=== PATIENT | female | born 1965 | race Caucasian/White ===

== ENCOUNTER → 2017-03-11 | Outpatient (CLI) | payer BC ==
--- NOTE | 2017-03-13 07:48 | MM ---
Reason for exam: screening (asymptomatic). Last mammogram was performed 9 months ago. History: Patient is postmenopausal. Family history of breast cancer in mother and breast cancer in grandmother at age 45. Physical Findings: A clinical breast exam by your physician is recommended on an annual basis and results should be correlated with mammographic findings. MG Screening Mammo w CAD Bilateral CC and MLO view(s) were taken. Prior study comparison: June 11, 2016, left breast MG diagnostic mammo LT w CAD. December 08, 2015, left breast MG 3d work up w/cad LT. November 28, 2015, bilateral MG screening mammo w CAD. September 26, 2014, bilateral MG screening mammo w CAD. March 15, 2013, bilateral digital screening mammo w/CAD. The breast tissue is heterogeneously dense. This may lower the sensitivity of mammography. There is chronic nodularity in the right breast inferiorly, stable from 2014. No significant changes when compared with prior studies. ASSESSMENT: Negative, BI-RAD 1 RECOMMENDATION: Routine screening mammogram of both breasts in 1 year.
== END ==
LOC: RADMAMWWP 15:13
PROVIDERS: ATTEND Family Medicine
DX: Z12.31 Encounter for screening mammogram for malignant neoplasm of breast (principal); Z80.3 Family history of malignant neoplasm of breast

== ENCOUNTER → 2018-06-04 | Outpatient (CLI) | payer BC ==
--- NOTE | 2018-06-08 10:34 | MM ---
Reason for exam: screening (asymptomatic). Last mammogram was performed 1 year and 3 months ago. History: Patient is postmenopausal. Family history of breast cancer in mother and breast cancer in grandmother at age 45. Physical Findings: A clinical breast exam by your physician is recommended on an annual basis and results should be correlated with mammographic findings. MG Screening Mammo w CAD Bilateral CC and MLO view(s) were taken. Prior study comparison: March 11, 2017, bilateral MG screening mammo w CAD. June 11, 2016, left breast MG diagnostic mammo LT w CAD. The breast tissue is heterogeneously dense. This may lower the sensitivity of mammography. No significant changes when compared with prior studies. ASSESSMENT: Negative, BI-RAD 1 RECOMMENDATION: Routine screening mammogram of both breasts in 1 year.
== END | disposition home or self-care (01) ==
LOC: RADMAMWWP 09:28
PROVIDERS: ATTEND Internal Medicine
DX: Z12.31 Encounter for screening mammogram for malignant neoplasm of breast (principal)
CPT/HCPCS: 77067

== ENCOUNTER → 2019-09-17 | Outpatient (CLI) | payer BC ==
--- NOTE | 2019-09-20 13:47 | MM ---
Reason for exam: screening (asymptomatic). Last mammogram was performed 1 year and 3 months ago. History: Patient is postmenopausal. Family history of breast cancer in mother and breast cancer in grandmother at age 45. Physical Findings: A clinical breast exam by your physician is recommended on an annual basis and results should be correlated with mammographic findings. MG Screening Mammo w CAD Bilateral CC and MLO view(s) were taken. Prior study comparison: June 04, 2018, bilateral MG screening mammo w CAD. March 11, 2017, bilateral MG screening mammo w CAD. The breast tissue is heterogeneously dense. This may lower the sensitivity of mammography. Focal asymmetry with questionable fine calcification. This finding is changed when compared with previous exams. ASSESSMENT: Incomplete: need additional imaging evaluation, BI-RAD 0 RECOMMENDATION: Special view mammogram of the left breast. If lesion persists on supplemental views, image directed ultrasound is recommended. [facility] will attempt to contact patient to return for supplemental views and ultrasound if indicated.
== END | disposition home or self-care (01) ==
LOC: RADMAMWWP 07:32
PROVIDERS: ATTEND Internal Medicine
DX: Z12.31 Encounter for screening mammogram for malignant neoplasm of breast (principal)
CPT/HCPCS: 77067

== ENCOUNTER → 2019-09-24 | Outpatient (CLI) | payer BC ==
--- NOTE | 2019-09-24 11:40 | MM ---
Reason for exam: additional evaluation requested from abnormal screening. Last mammogram was performed less than 1 month ago. History: Patient is postmenopausal. Family history of breast cancer in mother at age 70 and breast cancer in maternal grandmother at age 45. Physical Findings: Nurse did not find any significant physical abnormalities on exam. MG Work Up Mamm w CAD LT CC with magnification, ML with magnification, and ML view(s) were taken of the left breast. Prior study comparison: September 17, 2019, bilateral MG screening mammo w CAD. June 04, 2018, bilateral MG screening mammo w CAD. The breast tissue is heterogeneously dense. This may lower the sensitivity of mammography. No distinct lesion persists on additional views. These results were verbally communicated with the patient and result sheet given to the patient on 09/24/19. ASSESSMENT: Negative, BI-RAD 1 RECOMMENDATION: Return to routine screening mammogram schedule for both breasts.
== END | disposition home or self-care (01) ==
LOC: RADMAMWWP 10:51
PROVIDERS: ATTEND Internal Medicine
DX: R92.8 Other abnormal and inconclusive findings on diagnostic imaging of breast (principal)
CPT/HCPCS: 77065

== ENCOUNTER → 2021-02-01 | Outpatient (CLI) | payer BC ==
--- NOTE | 2021-02-01 11:23 | MM ---
Reason for exam: screening (asymptomatic). Last mammogram was performed 1 year and 4 months ago. History: Patient is postmenopausal. Family history of breast cancer in mother at age 70 and breast cancer in maternal grandmother at age 45. Physical Findings: A clinical breast exam by your physician is recommended on an annual basis and results should be correlated with mammographic findings. MG 3D Screening Mammo W/Cad Bilateral CC and MLO view(s) were taken. Prior study comparison: September 24, 2019, left breast MG work up mamm w CAD LT. September 17, 2019, bilateral MG screening mammo w CAD. The breast tissue is heterogeneously dense. This may lower the sensitivity of mammography. There are benign appearing round calcifications bilaterally. There is no discrete abnormality. ASSESSMENT: Benign, BI-RAD 2 RECOMMENDATION: Routine screening mammogram of both breasts in 1 year.
== END ==
LOC: RADMAMWWP 07:32
PROVIDERS: ATTEND Internal Medicine
DX: Z12.31 Encounter for screening mammogram for malignant neoplasm of breast (principal); Z78.0 Asymptomatic menopausal state; Z80.3 Family history of malignant neoplasm of breast
CPT/HCPCS: 77063; 77067

== ENCOUNTER → 2022-02-19 | Outpatient (CLI) | payer BC ==
--- NOTE | 2022-02-20 08:24 | MM ---
Reason for exam: screening (asymptomatic). Last mammogram was performed 1 year and 1 month ago. History: Patient is postmenopausal. Family history of breast cancer in mother at age 70 and breast cancer in maternal grandmother at age 45. Physical Findings: A clinical breast exam by your physician is recommended on an annual basis and results should be correlated with mammographic findings. MG 3D Screening Mammo W/Cad Bilateral CC and MLO view(s) were taken. Prior study comparison: February 01, 2021, bilateral MG 3d screening mammo w/cad. September 24, 2019, left breast MG work up mamm w CAD LT. The breast tissue is heterogeneously dense. This may lower the sensitivity of mammography. There are benign appearing round calcifications bilaterally. There is no discrete abnormality. ASSESSMENT: Benign, BI-RAD 2 RECOMMENDATION: Routine screening mammogram of both breasts in 1 year.
== END | disposition home or self-care (01) ==
LOC: RADMAMWWP 06:58
PROVIDERS: ATTEND Internal Medicine
DX: Z12.31 Encounter for screening mammogram for malignant neoplasm of breast (principal); Z78.0 Asymptomatic menopausal state; Z80.3 Family history of malignant neoplasm of breast
CPT/HCPCS: 77063; 77067

== ENCOUNTER → 2022-05-07 | Outpatient (CLI) | payer BC | END | disposition home or self-care (01) | LOC: LABWHC1 12:35 | PROVIDERS: ATTEND Obstetrics & Gynecology | DX: N83.209 Unspecified ovarian cyst, unspecified side (principal) | CPT/HCPCS: 36415; 82378; 86304 ==

== ENCOUNTER → 2022-06-17 | Outpatient (CLI) | payer BC ==
--- NOTE | 2022-06-17 09:37 | US ---
EXAMINATION TYPE: US pelvis complete transvag DATE OF EXAM: 06/17/2022 COMPARISON: 04/19/2022 CLINICAL HISTORY: N83.20 OVARIAN CYST. Follow up ovarian cyst, hx endometrial ablation TECHNIQUE: Transvaginal (TV) and Transabdominal (TA) . Transabdominal sonographic images of the pel vis were acquired. Transvaginal sonographic images were medically necessary to better assess the fol lowing anatomy: Ovaries Date of LMP: SHEAR HELPER, EXAM MEASUREMENTS: Uterus: 5.6 x 3.3 x 3.2 cm Right Ovary: 3.2 x 3.9 x 3.0 cm Left Ovary: 1.9 x 1.3 x 1.3 cm 1. Uterus: Anteverted Heterogenous 2. Endometrium: not well seen, hx ablation 3. Right Ovary: cyst- 3.0 x 3.3 x 2.3 cm 4. Left Ovary: follicles seen 5. Bilateral Adnexa: wnl 6. Posterior cul-de-sac: no free fluid IMPRESSION: 1. Right ovarian cyst persists although slightly smaller in size with current measurement given above versus 3.7 x 3.3 x 3.9 cm previously. Continued follow-up versus direct visualization.
== END | disposition home or self-care (01) ==
LOC: RADUSWWP 08:44
PROVIDERS: ATTEND Obstetrics & Gynecology
DX: N83.201 Unspecified ovarian cyst, right side (principal)
CPT/HCPCS: 76830; 76856

== ENCOUNTER → 2022-10-28 | Outpatient (CLI) | payer BC ==
[2022-10-28 17:43] LABS: INR 0.9 (<1.2); Prothrombin Time 9.9 sec (9.0-12.0)
[2022-10-28 22:43] LABS: Appearance,Urine Clear (Clear); Bilirubin,Urine Negative (Negative); Blood,Urine Negative (Negative); Color,Urine Yellow (Yellow); Ketones,Urine Negative (Negative); Nitrite,Urine Positive (Negative); Specific Gravity,Urine 1.016 (1.001-1.030); Urobilinogen,Urine 0.2 (0.2,1.0)
[2022-10-28 22:55] LABS: Bacteria,Urine 3+ /HPF (None Seen)
[2022-10-29 00:24] LABS: African American GFR (CKD) 96.3 (60.0-200.0); Albumin 4.2 g/dL (3.8-4.9); Albumin/Globulin Ratio 1.91 (1.60-3.17); Anion Gap 12.5 mmol/L (10.00-18.00); BUN/Creat Ratio 24.91 Ratio (12.00-20.00); Blood Urea Nitrogen 19.8 mg/dL (9.0-27.0); Calcium 9.6 mg/dL (8.7-10.3); Carbon Dioxide 21.3 mmol/L (20.0-27.5); Globulin 2.2 g/dL (1.6-3.3); Potassium 4.2 mmol/L (3.5-5.5); Total Bilirubin 0.4 mg/dL (0.30-1.20); Total Protein 6.4 g/dL (6.2-8.2)
[2022-10-29 01:47] LABS: HCT 36.8 % (37.2-46.3); MCH 30.2 pg (27.0-32.0); MCHC 32.6 g/dL (32.0-37.0); MCV 92.7 fL (80.0-97.0); Mean Platelet Volume 11.2 fL (9.5-12.2); NRBC Per 100 WBC 0 /100 WBCS (0.0-0.0); Platelet Count 252 X 10*3/uL (140-440); RBC 3.97 X 10*6/uL (4.10-5.20); RDW 13.2 % (11.5-14.5); WBC 12.04 X 10*3/uL (4.50-10.00)
--- NOTE | 2022-10-29 16:37 | CT ---
EXAMINATION TYPE: CT right knee - LUCIAN Protocol CT DLP: 1212.6 mGycm, Automated exposure control for dose reduction was used. DATE OF EXAM: 10/29/2022 4:26 PM COMPARISON: Extremity radiograph same day. CLINICAL INDICATION:Female, 57 years old with history of PRE OP, right knee pain TECHNIQUE: Axial images were obtained of the right knee Lucian protocol . Additional coronal and sagit wisam reformatted images and soft tissue and bone window were obtained for review. Contrast used: None Oral contrast used: None FINDINGS: The pelvis demonstrates right ovarian 2.5 cm cyst along with colonic diverticulosis. There is mild ri ght hip osteoarthrosis changes. Mild right ankle osteoporosis changes with hardware in the calcaneus and talus. The hardware appears intact. The knee demonstrates end-stage osteoarthrosis changes with o steophytes and joint space narrowing and small joint effusion. No evidence of fracture. IMPRESSION: 1. End-stage right knee osteoarthrosis. 2. Right ovary 2.5 cm cyst. 3. Colonic diverticulosis.
== END | disposition home or self-care (01) ==
LOC: RADCTMAIN 15:37
PROVIDERS: ATTEND Orthopaedic Surgery
DX: Z01.812 Encounter for preprocedural laboratory examination (principal); M25.561 Pain in right knee; M25.562 Pain in left knee; E78.5 Hyperlipidemia, unspecified; M21.062 Valgus deformity, not elsewhere classified, left knee; M21.061 Valgus deformity, not elsewhere classified, right knee; M17.0 Bilateral primary osteoarthritis of knee
CPT/HCPCS: 80053; 81001; 85027; 85610; 85730; 87070; 93005

== ENCOUNTER 2022-11-13 10:05 | Day surgery (SDC) | payer BC ==
[2022-11-08 11:53] VITALS: BMI 38.0
[~2022-11-13 10:05] MED LIST: ACETAMINOPHEN TAB 500 MG TAB PO PRN; DEXAMETHASONE SOD PHOSPHATE 10 MG/ML 1 ML VIAL IV PRN; DEXAMETHASONE SOD PHOSPHATE 4 MG/ML 1 ML VIAL IV ONE; DOCUSATE 100 MG CAP PO PRN; FAMOTIDINE 20 MG/2 ML VIAL IVP PRN; KETOROLAC 15 MG/ML 1 ML VIAL IVP PRN; LACTATED RINGERS 1,000 ML IV SCH; LIDOCAINE 1% (10MG/ML) FOR IV START INTRADERMA PRN; MIDAZOLAM 2 MG/2 ML VIAL IV PRN; ONDANSETRON 4 MG/2 ML VIAL IVP ONE; ONDANSETRON 4 MG/2 ML VIAL IVP PRN; ROPIVACAINE/EPI/CLONIDINE/KET 50 ML SYRINGE MISCELLANE PRN; TRANEXAMIC ACID IN NACL,ISO-OS 1,000 MG in SALINE 1 100ML.BAG IVPB PRN; oxyCODONE ER 10 MG TAB.ER.12H PO PRN
[2022-11-13] MEDS ORDERED: LACTATED RINGERS 1,000 ML IV ONE (10:50)
[2022-11-13] MEDS ORDERED: fentaNYL (PF) 50 MCG/1 ML VIAL IVP ONE (11:49)
[2022-11-13] MEDS ORDERED: MIDAZOLAM 2 MG/2 ML VIAL IVP ONE (11:49)
[2022-11-13] MEDS ORDERED: LIDOCAINE 2% INJ 20 MG/ML (2 ML VIAL) ONE (13:02)
[2022-11-13] MEDS ORDERED: GLYCOPYRROLATE 0.2 MG/ML 2 ML VIAL ONE (13:02)
[2022-11-13] MEDS ORDERED: NEOSTIGMINE 1 MG/ML 10 ML VIAL ONE (13:02)
[2022-11-13] MEDS ORDERED: fentaNYL (PF) 50 MCG/ML 2 ML AMP ONE (13:02)
[2022-11-13] MEDS ORDERED: ROPIVACAINE 5 MG/ML 30 ML VIAL ONE (13:02)
[2022-11-13] MEDS ORDERED: ROCURONIUM 10 MG/ML (5 ML VIAL) IV ONE (13:02)
[2022-11-13] MEDS ORDERED: SUCCINYLCHOLINE CHLORIDE 200 MG/10 ML VIAL IV ONE (13:02)
[2022-11-13] MEDS ORDERED: PROPOFOL 10 MG/ML 20 ML VIAL IV ONE (13:02)
[2022-11-13] MEDS ORDERED: MIDAZOLAM 2 MG/2 ML VIAL ONE (13:02)
[2022-11-13] MEDS ORDERED: SODIUM CHLORIDE 0.9% (PF) 10 ML VIAL ONE (13:02)
[2022-11-13] MEDS ORDERED: PHENYLEPHRINE-0.9% NACL SYG 1,000 MCG/10 ML SYRINGE ONE (13:02)
--- NOTE | 2022-11-13 14:08 | P.ANPRN ---
Procedure Note - Anesthesia - Nerve Block Performed Right Adductor Canal Time Out Performed: Yes (11:48) Date of Procedure: 11/13/22 Procedure Start Time: :48 Procedure Stop Time: :53 Location of Patient: PreOp Indication: Acute Post-Operative Pain, Requested by Surgeon (Dr Khan) Sedation Type: Sedate with meaningful contact maintained Preparation: Sterile Prep Position: Supine Catheter: None Needle Types: Pajunk Needle Gauge: 21 Ultrasound used to visualize needle placement: Yes Ultrasound used to observe medication spread: Yes Injectate: 0.5% Ropivacaine (see comment for volume) (15cc) Blood Aspirated: No Pain Paresthesia on Injection Noted: No Resistance on Injection: Normal Image Stored and Saved: Yes Events: Uneventful and Well Tolerated
--- NOTE | 2022-11-13 14:10 | P.ANPRN ---
Procedure Note - Anesthesia - Nerve Block Performed Right iPack Time Out Performed: Yes Date of Procedure: 11/13/22 Procedure Start Time: 11:55 Procedure Stop Time: 12:01 Location of Patient: PreOp Indication: Acute Post-Operative Pain, Requested by Surgeon (Dr Khan) Sedation Type: Sedate with meaningful contact maintained Preparation: Sterile Prep Position: Supine Catheter: None Needle Types: Pajunk Needle Gauge: 21 Ultrasound used to visualize needle placement: Yes Ultrasound used to observe medication spread: Yes Injectate: 0.5% Ropivacaine (see comment for volume) (15cc +5cc PF Normal saline) Blood Aspirated: No Pain Paresthesia on Injection Noted: No Resistance on Injection: Normal Image Stored and Saved: Yes Events: Uneventful and Well Tolerated
[2022-11-13] MEDS ORDERED: NALOXONE 0.4 MG/ML 1 ML VIAL IV PRN (15:47)
[2022-11-13] MEDS ORDERED: hydrOXYzine pamoate 25 MG CAP PO PRN (15:47)
[2022-11-13] MEDS ORDERED: HYDROcodone/APAP 5-325MG 1 EACH TAB PO PRN ×2 (15:47)
[2022-11-13] MEDS ORDERED: ONDANSETRON 4 MG/2 ML VIAL IVP PRN (15:47)
[2022-11-13] MEDS ORDERED: HYDROmorphone 0.5 MG/0.5 ML SYRINGE IVP PRN ×2 (15:47)
[2022-11-13] MEDS ORDERED: HYDROmorphone 1 MG/ML 1 ML SYRINGE IVP PRN (15:47)
--- NOTE | 2022-11-13 16:09 | P.OP ---
Date of Procedure: 11/13/22 Preoperative Diagnosis: Severe right knee osteoarthritis, valgus Postoperative Diagnosis: same Procedure(s) Performed: Right Total Knee Arthroplasty Implants: 1. Hal Triathlon CR Femur Size #3 2. [place] Triathlon [place] Tibial Base Size #2 3. [place] Triathlon CS poly Size #2, 11-mm 4. [place] Triathlon all poly patella, Size #29 Anesthesia: NNEKAA, regional Surgeon: Kennedy Khan Film Critic #1: Arianna Teran Estimated Blood Loss (ml): 50 IV fluids (ml): 1,200 Pathology: none sent Condition: stable Disposition: PACU Indications for Procedure: I met with the patient preoperatively in the office setting and discussed treatment of their symptomatic knee arthritis. They failed a long course of nonsurgical treatment and elected to proceed with an elective total knee replacement. I discussed the potential risks and complications at length and gave them ample time to ask questions. Risks discussed included: risks from anesthesia, superficial site surgical infection, acute and/or chronic periprosthetic joint infection, delayed wound healing, drainage, wound necrosis, instability, stiffness, stiffness requiring manipulation and/or revision surgery, damage to local blood vessels or nerves, aseptic loosening of the implants, extensor mechanism issues including disruption, patellar maltracking, avascular necrosis etc., continued or worsened knee pain, generalized dissatisfaction with surgical outcome, need for revision surgery, an inability to regain preinjury level of function, DVT, PE, other medical complications, and possibly loss of life or limb. The patient voiced their understanding that while these are the most common complications other less common complications are possible. They provided both their verbal and written consent to go forward with surgery. Description of Procedure: The patient was identified in preoperative holding and the correct operative extremity was verified and marked with a marker. I reviewed the consent form with the patient at length. All of their questions were answered. The patient was given a block by anesthesia. They were then brought back to the operating room. They were transferred onto the operating room table where a general anesthetic, preoperative antibiotics, and tranexamic acid were administered by anesthesia. A tourniquet was applied to the proximal aspect of the operative extremity. The contralateral extremity was padded under the heel and secured to the operating room table with a nonsterile blue towel and tape. The ipsilateral arm was carefully draped across the patient's chest and secured with a pillow and foam. A post was applied over the lateral aspect of the ipsilateral thigh and a bolster was placed under the ipsilateral foot. I verified that the operative extremity was stable and the knee was flexed to 90. The operative extremity was then placed in a leg warner, nonsterile drapes were applied, and the extremity was prepped and draped sterilely in the standard sterile fashion. Prior to starting surgery timeout was performed identifying the correct patient, operative extremity, and procedure. The leg was then elevated, exsanguinated with an Esmarch bandage, and the tourniquet was inflated. An anterior midline incision was made sharply with a scalpel. Once I had dissected deep to the superficial fascial layer medial and lateral flaps were elevated. A medial parapatellar arthrotomy was created. Upon opening the knee joint there were diffuse arthritic changes in all 3 compartments. The anterior horn of the medial meniscus were sharply released and a medial release was performed around the posterior medial corner of the knee to facilitate retractor placement. The fat pad was excised with electrocautery. The patella was found to be severely arthritic and a provisional cut was made with a sagittal saw to facilitate mobilization of the extensor mechanism during the procedure. Remnants of the ACL and PCL were then excised from the notch. 4 mm pins were then placed within the incision in the medial distal femur and proximal tibia. Arrays were applied to the pins and I verified they were completely tightened. The knee was then registered with the Bokee robot and manipulations in implant position were made to balance the knee and opitmize implant position. Using the Lucian robotic saw all cuts were made in accordance with our plan. After all bony fragments had been removed the cuts were verified with the planar probe. The tibia was then subluxed forward and sized. The knee was brought into flexion and a lamina interventionist was placed to allow removal of the meniscal remnants both medially and laterally as well as posterior osteophytes. Local anesthetic was then infiltrated around the joint capsule. Trial implants were then placed within the knee. Range of motion and collateral ligament tension was then evaluated. Adjustments in implant size and position were then made accordingly. Once the knee was felt to be appropriately balanced the Lucian pins were removed. The patella was then recut, sized, and punched. A trial patellar button was then placed. With the trial components in place, the patella tracked midline. The femur was then drilled and the trial component removed. The trial tibial component was then appropriately rotated, pinned, and prepared for the keel. All trial components were then removed from the knee. The knee was thoroughly irrigated with pulsatile lavage. Cement was prepared via vacuum mixing in a bowl on the back table. I then hand pressurized cement into the femur and tibia and placed the implants beginning with the tibial base tray and poly liner, femoral component, and finally the patellar button. All extruded cement was removed including from the pin sites. Once the cement had hardened the knee was evaluated one final time with the final polyethylene liner in place. The knee had full extension and flexion and felt stable to varus and valgus stress throughout the arc of motion. The tourniquet was released and with the tourniquet down the patella tracked midline. All bleeders were controlled with electrocautery. The knee was then soaked for 3 minutes with a dilute Betadine soak. The knee was thoroughly irrigated using 3 L of sterile saline and pulsatile lavage. A deep drain was placed. The extensor mechanism was then reapproximated using pop off Vicryl sutures followed by a running barbed suture. The knee was then closed in layers with a 0 strata fix for the deep fascial layer, 2-0 strata fix for the superficial subcutaneous layer and Monocryl and Steri-Strips for the skin. A sterile dressing and drain sponge were applied. I verified that all instrument, sponge, and sharp counts were correct. The patient was then transferred off the operating room table, extubated, and brought to recovery having tolerated the procedure well. Arianna Teran PA-C was required as a skilled radiology assistant due to the complexity of the procedure for patient positioning, draping, retraction, placement of hardware, and closure of wound. PLAN: The patient can weight-bear as tolerated on the operative extremity. DVT prophylaxis with aspirin 81 mg twice a day based on preoperative risk stratification. Follow-up in the office in 2 weeks for wound check and x-rays of the knee including an AP and lateral.
[2022-11-13] MEDS: HYDROmorphone 0.5 MG/0.5 ML SYRINGE IVP PRN ×2 (16:13→16:26)
--- NOTE | 2022-11-13 16:19 | XR ---
EXAMINATION TYPE: XR knee limited RT DATE OF EXAM: 11/13/2022 CLINICAL HISTORY: Right knee pain and arthritis status post total knee replacement. TECHNIQUE: Portable AP and crosstable lateral views of the right knee are obtained immediately posto peratively. COMPARISON: CT right knee October 28, 2022 FINDINGS: Metallic hardware from total right knee arthroplasty is seen and appears satisfactory in a lignment and position. There is evidence of recent surgery with diffuse subcutaneous gas , soft tiss ue swelling, and percutaneous suprapatellar surgical drain noted. IMPRESSION: METALLIC HARDWARE FROM TOTAL RIGHT KNEE ARTHROPLASTY IS SATISFACTORY IN ALIGNMENT.
[2022-11-13] MEDS: LACTATED RINGERS 1,000 ML IV SCH ×3 (16:25→18:08)
--- NOTE | 2022-11-13 18:33 | P.OP ---
Date of Procedure: 11/13/22 Preoperative Diagnosis: 1. Displaced left trimalleolar equivalent ankle fracture dislocation Postoperative Diagnosis: Same Procedure(s) Performed: 1. Open reduction and internal fixation of left lateral malleolus fracture 2. Left ankle deltoid ligament repair 3. Left ankle open reduction internal fixation syndesmosis Anesthesia: СЕРГЕЙ, regional Surgeon: Kennedy Khan Savings Counselor #1: Arianna Teran Estimated Blood Loss (ml): 25 IV fluids (ml): 1,200 Pathology: none sent Condition: stable Disposition: PACU Indications for Procedure: The patient is a very pleasant previously healthy 57-year-old female who sustained a left ankle fracture dislocation several weeks ago. She was seen in our emergency department where a closed reduction and splint application was performed. She had a postreduction computed tomography scan. She followed up with me in the office. I recommended open reduction and internal fixation. We discussed potential risks and complications of this at length. Risks discussed include but are certainly not limited to risks from anesthesia, superficial infection, deep infection, delayed wound healing, nonunion, malunion, malreduction of the ankle mortise, hardware failure, postoperative displacement, damage to blood vessels or nerves, DVT, PE, posttraumatic ankle arthritis, chronic pain, and inability to regain preinjury level of function, need for further surgery, symptomatic hardware, and possibly loss of life or limb. The patient voiced understanding of these potential complications wall also a bulging other less common complications. She provided both her verbal and written consent to go forward with surgery. Description of Procedure: The patient was identified in preoperative holding area and her left splint was taken down. We confirmed the correct left ankle. There was wrinkling of the skin. We reviewed the consent form and all the patient's questions were answered. A block was placed by anesthesia. The patient was then brought to the operating room. She was positioned on the OR table were general anesthetic and preoperative antibiotics were given. A tourniquet was applied the proximal aspect of the left ankle. A bone foam ramp was placed on the left leg to facilitate imaging. A bump was placed on the left buttock to facilitate imaging. The right leg was secured to the table with foam and tape. Nonsterile drapes were applied. A pre-scrub was performed with a chlorhexidine scrub brush. The left leg was then prepped and draped in the standard sterile fashion. A starting surgery timeout was performed identifying the correct patient, operative extremity, and procedure. The patient's leg was then elevated, exsanguinated with Esmarch bandage, and the tourniquet was inflated to 250 mmHg. I began by making a straight lateral incision of the distal fibula. Skin incision was made a scalpel and dissection was carried down carefully to the subcutaneous tissue with tenotomy scissors. The superficial peroneal nerve was identified within the incision was carefully retracted throughout the procedure. Dissection was then carried down exposing the distal fibula sharply with a scalpel. The periosteum was elevated distally in the peroneal muscle fascia was incised proximally. The fracture site was identified and early callus and hematoma was gently debrided. The reduction was performed and held with a [id number] reduction clamp. A 2.7 mm lag screw was placed generate excellent compression across the fracture. A precontoured distal fibular locking plate was then placed over the distal fibula and its position was confirmed with fluoroscopy. Nonlocking screws were placed proximally. Distally a nonlocking screw was placed to bring the plate down to bone and then locking screws were placed. A manual external rotation stress x-ray was performed and showed continued opening of the medial clear space. I elected to perform a deltoid ligament repair. A longitudinal incision was made over the medial malleolus. Dissection was carried down carefully to the subcutaneous tissue. The saphenous vein was identified and retracted anteriorly. On inspection the deltoid ligament had completely avulsed off of the medial distal tibia. There was soft tissue within the medial gutter of the ankle that was carefully removed. On inspection of the medial dome of the talus there is a full-thickness osteochondral flap which was carefully debrided. There is exposed subchondral bone. Using a 0.054 wire this was perforated to facilitate bleeding as a microfracture. A fiber tack suture anchor was then placed into the medial malleolus and the deltoid ligament was carefully repaired. At this point a manual external patient's stress x-ray showed continued opening of the medial clear space and incisura. I interpreted this as requiring syndesmotic fixation. At this point attention was turned to the syndesmosis. Using the tight rope A K wire was placed through the plate across the fibula and into the tibia. Its position was verified using biplanar fluoroscopy. A cannulated drill bit was then used to create a path for the tight rope. The tight rope was then dispensed and placed from lateral to medial. The Endobutton was disengaged and gently tightened nicely reduced and the syndesmosis. A manual external rotation stress x-ray was performed and showed no widening of the medial clear space or incisura. Final fluoroscopic images were taken. Both wounds were then thoroughly irrigated and closed in layers. A sterile dressing was applied followed by a well-padded bulky Hanks splint with the ankle in neutral. The patient was then awoken from her anesthetic, transferred from the OR table to the [facility], and brought to recovery having tolerated the procedure well. Arianna Teran PA-C was required as a skilled assistant restaurant general manager for patient positioning, surgical exposure, Placement of hardware, closure of wound, and application of splint. Plan: The patient is going to discharge home as an outpatient which should remain strictly nonweightbearing on her left leg. She will leave her splint in place. She was given a prescription for pain medication, stool softener, and aspirin for DVT prophylaxis based on her preoperative risk stratification for DVT. She'll follow-up in the office in 2 weeks at which point she will need splint removal and nonweightbearing x-rays of the left ankle.
[2022-11-13] MEDS ORDERED: SENNOSIDES-DOCUSATE SODIUM 1 EACH TAB PO SCH (21:00)
[2022-11-13] MEDS: ASPIRIN 81 MG PO SCH (22:06)
[2022-11-14 02:14] VITALS: RESP 18
[2022-11-14 07:42] VITALS: BP 116/68; PULSE 73; TEMP 98.3
[2022-11-14] MEDS: ASPIRIN 81 MG PO SCH (08:12)
[2022-11-14] MEDS: LACTATED RINGERS 1,000 ML IV SCH (08:13)
[2022-11-14] MEDS ORDERED: ATORVASTATIN 20 MG TAB PO SCH (09:00)
[2022-11-14] MEDS ORDERED: OXYBUTYNIN CHLORIDE 5 MG TAB PO SCH (09:00)
[2022-11-14] MEDS ORDERED: SPIRONOLACTONE 25 MG TAB PO SCH (09:00)
--- NOTE | 2022-11-14 09:03 | P.DS ---
Providers Expected date of discharge: 11/14/22 Attending physician: Kennedy Khan Consults: 11/13/22 15:49 Consult Physician Routine Consulting Provider: Myrna Estrada Consult Reason/Comments: medical management Do you want consulting provider notified?: Yes Primary care physician: Jennfier Alberto [facility] Course: This is a 57-year-old female who has been followed in our office by Dr. Khan for continued complaints of right knee pain due to right knee osteoarthritis. Treatment options were discussed, and patient elected to undergo a right total knee arthroplasty. Patient was seen pre-operatively by Dr. Alberto and cleared for surgery. Patient underwent a right total knee arthroplasty on 11/14/[address] Khan. The procedure was performed without complication or sequelae. The patient is doing fairly well postoperatively. Vital signs and labs are stable on postoperative day #1. Patient was examined bedside this morning with Dr. Khan. Patient states she is overall doing very well and the pain in her right knee is well-controlled. She has been ambulating with a walker with minimal assistance. Patient is comfortable being discharged home today. Patient denies new complaints today. On examination, the patient is sitting up in bed in no apparent distress. She is alert and orientated 3. On inspection of the right knee, there is a clean, dry, intact surgical dressing in place. There is no bleeding or drainage the dressing. Patient has good strength and ROM of the right ankle and toes. Motor and sensory function is intact of the right lower extremity. The dorsalis pedis pulse is easily palpable, the right lower extremity is warm and well perfused with brisk capillary refill. Calf is soft and non-tender to palpation. Hemovac drain removed bedside this morning. Patient is discharged home with home health care today in good condition, pending medical clearance. Patient will follow-up with Dr. Khan in the office in 2 weeks. Please see med rec for accurate list of discharge medication. Plan - Discharge Summary Discharge Rx Participant: Yes New Discharge Prescriptions: New Aspirin 81 mg PO BID 30 Days #60 tab Docusate [Colace] 100 mg PO BID #60 capsule HYDROcodone/APAP 5-325MG [[place] 5-325] 1 - 2 tab PO Q6HR PRN 7 Days #32 tab PRN Reason: Pain Omeprazole 40 mg PO DAILY 30 Days #30 cap Diclofenac Sodium [Voltaren] 75 mg PO BID 30 Days #60 tab No Action Spironolactone [Aldactone] 50 mg PO DAILY Ibuprofen [Motrin] 800 mg PO BID Candesartan [Atacand] 16 mg PO DAILY Rosuvastatin [Crestor] 10 mg PO DAILY Ciprofloxacin HCl [Cipro] 500 mg PO Q12HR Oxybutynin Chloride 5 mg PO DAILY EPINEPHrine (Auto Inject) [Epipen] 0.3 mg IM ONCE PRN MDD ALLERGY SYMPTOMS PRN Reason: Anaphylaxis Discharge Medication List Candesartan [Atacand] 16 mg PO DAILY 11/08/22 [History] Ciprofloxacin HCl [Cipro] 500 mg PO Q12HR 11/08/22 [History] EPINEPHrine (Auto Inject) [Epipen] 0.3 mg IM ONCE PRN MDD ALLERGY SYMPTOMS 11/08/22 [History] Ibuprofen [Motrin] 800 mg PO BID 11/08/22 [History] Oxybutynin Chloride 5 mg PO DAILY 11/08/22 [History] Rosuvastatin [Crestor] 10 mg PO DAILY 11/08/22 [History] Spironolactone [Aldactone] 50 mg PO DAILY 11/08/22 [History] Aspirin 81 mg PO BID 30 Days #60 tab 11/13/22 [Rx] Diclofenac Sodium [Voltaren] 75 mg PO BID 30 Days #60 tab 11/13/22 [Rx] Docusate [Colace] 100 mg PO BID #60 capsule 11/13/22 [Rx] HYDROcodone/APAP 5-325MG [[place] 5-325] 1 - 2 tab PO Q6HR PRN 7 Days #32 tab 11/13/22 [Rx] Omeprazole 40 mg PO DAILY 30 Days #30 cap 11/13/22 [Rx] Follow up Appointment(s)/Referral(s): Jennifer Alberto MD [Primary Care Provider] - 1 Week Kennedy Khan MD [Medical Doctor] - 11/22/22 1:05 pm Patient Instructions/Handouts: Knee Replacement (DC)
[2022-11-14 10:15] LABS: Basophils # (A) 0.03 X 10*3/uL (0.00-0.10); Basophils % (A) 0.2 %; Eosinophils # (A) 0 X 10*3/uL (0.04-0.35); Eosinophils % (A) 0 %; HCT 34.9 % (37.2-46.3); HGB 11.7 g/dL (12.0-15.0); Immature Grans, Automated 0.7 %; Lymphocytes # (A) 0.92 X 10*3/uL (0.90-5.00); Lymphocytes % (A) 4.9 %; MCH 31.1 pg (27.0-32.0); MCHC 33.5 g/dL (32.0-37.0); MCV 92.8 fL (80.0-97.0); Mean Platelet Volume 10.1 fL (9.5-12.2); Monocytes # (A) 0.69 X 10*3/uL (0.20-1.00); Monocytes % (A) 3.7 %; NRBC Per 100 WBC 0 /100 WBCS (0.0-0.0); Neutrophils # (A) 17.11 X 10*3/uL (1.80-7.70); Neutrophils % (A) 90.5 %; Platelet Count 255 X 10*3/uL (140-440); RBC 3.76 X 10*6/uL (4.10-5.20); RDW 12.9 % (11.5-14.5); WBC 18.88 X 10*3/uL (4.50-10.00)
[2022-11-14 10:16] LABS: RBC Morphology NORMAL
--- NOTE | 2022-11-14 14:16 | P.CONS ---
History of Present Illness - Reason for Consult Consult date: 11/14/22 Medical management, postop right knee arthroplasty - History of Present Illness This is a 57-year-old female who was recently admitted under orthopedic services scheduled to undergo right total knee arthroplasty for osteoarthritis. Patient reports he follows with Dr. Alberto in the outpatient setting with a past medical history of hyperlipidemia, hypertension, osteoarthritis and was a former smoker and occasionally drinks on social occasions and denies any other illicit drug use. Patient is status post arthroplasty unable to work with physical therapy and did relatively well reports she is planning on being discharged home today. Patient does take blood pressure medications in the form of Aldactone and candesartan. Patient's blood pressure currently normalized at 116/68 and recommend monitoring blood pressure as she reports she does have a cuff at home and is blood pressure increases may resume medications tomorrow. Patient does have a follow-up appointment in the outpatient setting. Patient with incentive spirometer at the bedside encourage the patient to take home and continue using at least 10 times every hour while awake. We will continue to follow with orthopedics during hospitalization. Recommend holding blood pressure medication for now. Review Of Systems: Constitutional: No fever, no chills, no night sweats. No weight change. No weakness, fatigue or lethargy. No daytime sleepiness. EENT: No headache. No blurred vision or double vision, no loss of vision. No loss of Hearing, no ringing in the ears, no dizziness. No nasal drainage or congestion. No epistaxis. No sore throat. Lungs: No shortness of breath, cough, no sputum production. No wheezing. Cardiovascular: No chest pain, no lower extremity edema. No palpitations. No paroxysmal nocturnal dyspnea. No orthopnea. No lightheadedness or dizziness. No syncopal episodes. Abdominal: No abdominal pain. No nausea, vomiting. No diarrhea. No constipation. No bloody or tarry stools.. No loss of appetite. Genitourinary: No dysuria, increased frequency, urgency. No urinary retention. Musculoskeletal: No myalgias. No muscle weakness, no gait dysfunction, no frequent falls. No back pain. No neck pain. Reports some right knee discomfort Integumentary: No wounds, no lesions. No rash or pruritus. No unusual bruising. No change in hair or nails. Neurologic: No aphasia. No facial droop. No change in mentation. No head injury. No headache. No paralysis. No paresthesia. Psychiatric: No depression. No anxiety. No mood swings. Endocrine: No abnormal blood sugars. No weight change. No excessive sweating or thirst. No cold intolerance. PHYSICAL EXAMINATION: GENERAL: The patient is alert and oriented x4, Well developed, well nourished. Obese. HEENT: Pupils are round and equally reacting to light. EOMI. no scleral icterus. No conjunctival pallor. Normocephalic, atraumatic. No pharyngeal erythema. No thyromegaly. CARDIOVASCULAR: S1 and S2 muffled PULMONARY: diminished breath sounds bilaterally with no wheezing or rhonchi noted. ABDOMEN: soft. Nontender on exam. obese. non-distended, normoactive bowel sounds. No palpable organomegaly. MUSCULOSKELETAL: No joint swelling or deformity. EXTREMITIES: No cyanosis, clubbing, or pedal edema. Right knee dressing is dry and intact with no surrounding redness or swelling noted NEUROLOGICAL: Gross neurological examination did not reveal any focal deficits. SKIN: No rashes. Assessment: Status post right total knee arthroplasty History of osteoarthritis Hypertension Hyperlipidemia Obesity with a BMI of 37.7 Former smoker GI prophylaxis DVT prophylaxis Full code Plan: Recommend to continue with current medications and management per orthopedic services. Patient has been seen and evaluated by PT/OT therapy and did well and is planning for discharge home today. Patient reports her pain is managed on current regimen and will continue. Patient with incentive spirometer at the bedside recommend to continue using at least 10 times every hour while awake even while at home. Patient does take blood pressure medications and blood pressure normotensive today recommend to hold medications and recheck blood pressure in the morning and if elevated may resume blood pressure medications. Encouraged fluids and monitoring of constipation due to pain medications. Continue with activity as tolerated with restrictions per orthopedics. Recommend outpatient follow-up with primary care provider along with orthopedics at your scheduled follow-up appointment. We will continue to follow along with orthopedics during hospitalization. Thank you kindly for this consultation. The impression and plan of care has been dictated by Adelina Jacobsen, nurse practitioner as directed. Dr. Fran PAINTING I have performed a history and examination and MDM of this patient, discussed the same with the dictator, and agree with the dictator's assessment and plan as written ,documented as a scribe. Based on total visit time, I have performed more than 50% of the visit. Any additional findings or plans will be noted. Past Medical History Past Medical History: Hyperlipidemia, Hypertension, Osteoarthritis (OA) History of Any Multi-Drug Resistant Organisms: None Reported Past Surgical History: Section, Uterine Ablation Additional Past Surgical History / Comment(s): C SECTION X2 , D&C, BILATERAL FOOT SURGERY, RIGHT WRIST, Rt TKR Past Anesthesia/Blood Transfusion Reactions: Family History of Problems w/ Anesthesia Additional Past Anesthesia/Blood Transfusion Reaction / Comm: MOM WAS COMBATIVE WITH ANESTHESIA Past Psychological History: No Psychological Hx Reported Smoking Status: Former smoker Past Alcohol Use History: Occasional Additional Past Alcohol Use History / Comment(s): STARTED SMOKING AT AGE 16 QUIT AUG 2022 SMOKED 4 CIG A DAY Past Drug Use History: None Reported - Past Family History Mother Family Medical History: Cancer Additional Family Medical History / Comment(s): BREAST CANCER Medications and Allergies Home Medications Medication Instructions Recorded Confirmed Type Candesartan [Atacand] 16 mg PO DAILY 11/08/22 11/08/22 History EPINEPHrine (Auto Inject) [Epipen] 0.3 mg IM ONCE PRN MDD ALLERGY 11/08/22 11/08/22 History SYMPTOMS Ibuprofen [Motrin] 800 mg PO BID 11/08/22 11/08/22 History Oxybutynin Chloride 5 mg PO DAILY 11/08/22 11/08/22 History Rosuvastatin [Crestor] 10 mg PO DAILY 11/08/22 11/08/22 History Spironolactone [Aldactone] 50 mg PO DAILY 11/08/22 11/08/22 History Aspirin 81 mg PO BID 30 Days #60 tab 11/13/22 Rx Diclofenac Sodium [Voltaren] 75 mg PO BID 30 Days #60 tab 11/13/22 Rx Docusate [Colace] 100 mg PO BID #60 capsule 11/13/22 Rx HYDROcodone/APAP 5-325MG [[place] 1 - 2 tab PO Q6HR PRN 7 Days #32 11/13/22 Rx 5-325] tab Omeprazole 40 mg PO DAILY 30 Days #30 cap 11/13/22 Rx Allergies Allergy/AdvReac Type Severity Reaction Status Date / Time latex Allergy Rash/Hives Verified 11/08/22 09:32 shellfish derived [Shellfish] Allergy Rash/Hives Verified 11/08/22 09:32 Physical Exam Vitals: Vital Signs Temp Pulse Resp BP Pulse Ox 11/14/22 07:40 98.3 F 73 18 116/68 96 11/14/22 01:53 98.0 F 58 L 18 104/66 97 11/13/22 18:05 74 113/82 99 11/13/22 17:22 97.7 F 90 17 102/61 90 L 11/13/22 16:45 82 16 111/54 100 11/13/22 16:30 90 16 127/59 98 11/13/22 16:15 91 16 124/63 99 11/13/22 16:00 93 16 127/59 99 11/13/22 15:50 92 16 119/58 99 11/13/22 15:44 97.9 F 95 16 124/62 99 11/13/22 12:03 69 16 109/61 98 11/13/22 10:49 98.1 F 80 18 132/67 99 Intake and Output 11/13/22 11/14/22 11/14/22 22:59 06:59 14:59 Intake Total 650 Output Total 50 Balance 600 Intake: IV 300 Intake, IV Titration 350 Amount Lactated Ringers 1,000 ml 300 @ 100 mls/hr IV .Q10H [facility] Rx#:[id number] ceFAZolin 2 gm In Sodium 50 Chloride 0.9% 50 ml @ 100 mls/hr IVPB Q8H [facility] Rx#: [id number] Output: Estimated Blood Loss 50 Other: Voiding Method Toilet # Voids 2 Weight 93.4 kg Results CBC & Chem 7: 11/14/22 06:06
== END 2022-11-14 13:31 | disposition home health service (06) ==
LOC: OR 10:05 → 4SSUR 15:44 → OR 11-14 13:31
PROVIDERS: ATTEND Orthopaedic Surgery
DX: M17.11 Unilateral primary osteoarthritis, right knee (principal); G89.18 Other acute postprocedural pain; I10 Essential (primary) hypertension; E78.5 Hyperlipidemia, unspecified; M21.062 Valgus deformity, not elsewhere classified, left knee; M21.061 Valgus deformity, not elsewhere classified, right knee; Z97.3 Presence of spectacles and contact lenses; Z88.5 Allergy status to narcotic agent; Z82.49 Family history of ischemic heart disease and other diseases of the circulatory system; Z83.3 Family history of diabetes mellitus; Z86.59 Personal history of other mental and behavioral disorders
CPT/HCPCS: 97161; 64447; 81025; 64999; 76942; 85025; 73560; 27447; 27822; C1776; C1713; J2250; J1100; J0690 ×2; J2405; J1885; J1170; J3010

== ENCOUNTER 2022-12-25 09:38 | Day surgery (SDC) | payer BC ==
[2022-12-20 11:35] VITALS: BMI 38.0
[~2022-12-25 09:38] MED LIST changes: -ACETAMINOPHEN TAB 500 MG TAB PO PRN; -DEXAMETHASONE SOD PHOSPHATE 10 MG/ML 1 ML VIAL IV PRN; -DEXAMETHASONE SOD PHOSPHATE 4 MG/ML 1 ML VIAL IV ONE; -DOCUSATE 100 MG CAP PO PRN; -FAMOTIDINE 20 MG/2 ML VIAL IVP PRN; -KETOROLAC 15 MG/ML 1 ML VIAL IVP PRN; -LACTATED RINGERS 1,000 ML IV SCH; -LIDOCAINE 1% (10MG/ML) FOR IV START INTRADERMA PRN; -MIDAZOLAM 2 MG/2 ML VIAL IV PRN; -ONDANSETRON 4 MG/2 ML VIAL IVP ONE; -ONDANSETRON 4 MG/2 ML VIAL IVP PRN; +Pre Op ABX Message 1 EACH MISC MISCELLANE ONE; -ROPIVACAINE/EPI/CLONIDINE/KET 50 ML SYRINGE MISCELLANE PRN; -TRANEXAMIC ACID IN NACL,ISO-OS 1,000 MG in SALINE 1 100ML.BAG IVPB PRN; -oxyCODONE ER 10 MG TAB.ER.12H PO PRN
[2022-12-25] MEDS ORDERED: MIDAZOLAM 2 MG/2 ML VIAL IV PRN (10:00)
[2022-12-25] MEDS ORDERED: LIDOCAINE 1% (10MG/ML) FOR IV START INTRADERMA PRN (10:00)
[2022-12-25] MEDS ORDERED: ONDANSETRON 4 MG/2 ML VIAL IVP ONE (10:00)
[2022-12-25] MEDS ORDERED: HYDROmorphone 0.5 MG/0.5 ML SYRINGE IVP PRN (10:00)
[2022-12-25] MEDS ORDERED: DEXAMETHASONE SOD PHOSPHATE 4 MG/ML 1 ML VIAL IV ONE (10:00)
[2022-12-25] MEDS ORDERED: LACTATED RINGERS 1,000 ML IV SCH (10:00)
[2022-12-25 10:39] VITALS: RESP 16; TEMP 98.5
[2022-12-25] MEDS ORDERED: TRANEXAMIC ACID 1,000 MG in SODIUM CHLORIDE 0.9% 100 ML IVPB ONE (10:42)
[2022-12-25] MEDS ORDERED: MIDAZOLAM 2 MG/2 ML VIAL ONE (11:01)
[2022-12-25] MEDS ORDERED: HYDROmorphone (PF) 1 MG/ML ONE (11:01)
[2022-12-25] MEDS ORDERED: PROPOFOL 10 MG/ML 20 ML VIAL IV ONE (11:01)
[2022-12-25] MEDS ORDERED: TRANEXAMIC ACID IN NACL,ISO-OS 1,000 MG/100 ML BAG ONE (11:01)
[2022-12-25] MEDS ORDERED: HYDROcodone/APAP 5-325MG 1 EACH TAB ONE (11:38)
[2022-12-25] MEDS ORDERED: HYDROcodone/APAP 5-325MG 1 EACH TAB PO ONE (11:39)
[2022-12-25 11:56] VITALS: PULSE 86
[2022-12-25 12:06] VITALS: BP 140/82
--- NOTE | 2023-01-01 07:38 | P.OP ---
Date of Procedure: 12/25/22 Preoperative Diagnosis: Prior right total knee with postoperative arthrofibrosis Postoperative Diagnosis: Same Procedure(s) Performed: Right knee manipulation under anesthesia Anesthesia: СЕРГЕЙ Surgeon: Kennedy Khan IV fluids (ml): 300 Pathology: none sent Condition: stable Disposition: PACU Indications for Procedure: The patient is a very pleasant 57-year-old female who underwent a right total knee replacement 6 weeks ago. She initially did well but had difficulty rega ining motion. I saw her in the office last week and she had full extension and flexion to 85. My recommendation was to proceed with a manipulation under anesthesia. She understands the potential risks of this particularly recurrent stiffness and periprosthetic fracture. She provided consent to go forward with procedure. Operative Findings: Prior to starting the manipulation while under anesthesia the patient had full extension and flexion to 90. Following gentle manipulation she had flexion to 120. Description of Procedure: I met with the patient and her in preoperative holding to discuss the procedure. The correct right leg was marked with my initials. The patient was then brought back to the operating room. While on her gurney and anesthetic was provided by the anesthesiologist. A timeout was then performed identifying the correct patient, operative extremity, and procedure. Once the patient was under anesthesia I evaluated her motion. She had a 5 flexion contracture and flexion to 90. A gentle posterior force was applied over the proximal third of the tibia over several minutes to gradually release adhesions within the knee. There was audible crackling of scar tissue was broken. Following gentle manipulation I was able to flex the knee to 120. The patient was then brought to recovery having tolerated the procedure well. Plan: The patient is going to start aggressive physical therapy to maintain her motion. She will otherwise continue postoperative care as previously documented to my office note. She'll need help in the office in 2 weeks for clinical check and x-rays of the knee.
== END 2022-12-25 12:36 | disposition home or self-care (01) ==
LOC: OR 09:38
PROVIDERS: ATTEND Orthopaedic Surgery
DX: M24.661 Ankylosis, right knee (principal); I10 Essential (primary) hypertension; E78.5 Hyperlipidemia, unspecified; K21.9 Gastro-esophageal reflux disease without esophagitis; Z79.899 Other long term (current) drug therapy; Z96.651 Presence of right artificial knee joint; Z98.51 Tubal ligation status; Z87.891 Personal history of nicotine dependence; Z86.59 Personal history of other mental and behavioral disorders
CPT/HCPCS: 27570; J2250; J1100; J2405; J1170; J2704

== ENCOUNTER → 2023-06-10 | Outpatient (CLI) | payer BC ==
--- NOTE | 2023-06-10 08:57 | MM ---
Reason for Exam: Screening (asymptomatic). Last mammogram was performed 1 year(s) and 4 month(s) ago. Patient History: Menarche at age 11. First Full-Term at age 29. Postmenopausal. Maternal grandmother had breast cancer, age 45. Mother had breast cancer, age 70. Risk Values: Miri 5 year model risk: 2.8%. NCI Lifetime model risk: 16.2%. Prior Study Comparison: 09/24/2019 Left Diagnostic Mammogram, [facility]. 02/01/2021 Bilateral Screening Mammogram, [facility]. 02/19/2022 Bilateral Screening Mammogram, [facility]. Tissue Density: The breast tissue is heterogeneously dense. This may lower the sensitivity of mammography. Findings: Analyzed By CAD. There is no suspicious group of microcalcifications or new suspicious mass in either breast. Overall Assessment: Negative, BI-RAD 1 Management: Screening Mammogram of both breasts in [address] [facility] will attempt to contact patient to return for supplemental views and ultrasound if indicated. Patient should continue monthly self-breast exams. A clinical breast exam by your physician is recommended on an annual basis. This exam should not preclude additional follow-up of suspicious palpable abnormalities. Note on Miri scores and lifetime risk: 1. A Miri score greater than 3% is considered moderate risk. If this is the case, consider specialist referral to assess eligibility for a risk reducing agent. 2. If overall lifetime risk for the development of breast cancer is 20% or higher, the patient may qualify for future screening with alternating mammogram and breast MRI. Electronically signed and approved by: Efren Acosta DO
== END | disposition home or self-care (01) ==
LOC: RADMAMWWP 06:49
PROVIDERS: ATTEND Family Medicine
DX: Z12.31 Encounter for screening mammogram for malignant neoplasm of breast (principal); Z78.0 Asymptomatic menopausal state; Z80.3 Family history of malignant neoplasm of breast
CPT/HCPCS: 77063; 77067

== ENCOUNTER → 2023-07-22 | Outpatient (CLI) | payer BC ==
--- NOTE | 2023-07-22 09:03 | US ---
EXAMINATION TYPE: US transvaginal DATE OF EXAM: 07/22/2023 COMPARISON: US 01/28/2023 CLINICAL INDICATION: Female, 58 years old with history of R19.09 PELVIC SWELLING; Pelvic swelling. Hx ovarian cyst. Hx ablation in 2014, 2 C sections. No pain or bleeding. . TECHNIQUE: Transvaginal (TV). Date of LMP: in 2014 at time of ablation. EXAM MEASUREMENTS: Uterus: 6.3 x 2.8 x 4.1 cm Endometrial Stripe: Not well seen, measured at 0.3 cm Right Ovary: 4.5 x 3.4 x 2.9 cm Left Ovary: 2.2 x 1.6 x 1.8 cm 1. Uterus: Anteverted Very heterogeneous. *Many subcentimeter anechoic areas seen in cervix. 2. Endometrium: Not well seen, measured at 0.3 cm. 3. Right Ovary: Slightly enlarged. Arterial and venous flow seen within. Complex area seen: 4.0 x 3.3 x 2.8 cm. 4. Left Ovary: Complex area seen: 1.6 x 1.2 x 1.3 cm. 5. Bilateral Adnexa: Appear wnl 6. Posterior cul-de-sac: Appears wnl IMPRESSION: 1. Correlate for small leiomyomatous change of the uterus. 2. Complex ovarian cystic lesions seen bilaterally with slight increase in size. Consider direct visu alization to exclude neoplasm.
== END | disposition home or self-care (01) ==
LOC: RADUSWWP 06:56
PROVIDERS: ATTEND Obstetrics & Gynecology
DX: N83.292 Other ovarian cyst, left side (principal); N83.291 Other ovarian cyst, right side
CPT/HCPCS: 76830

== ENCOUNTER → 2024-08-10 | Outpatient (CLI) | payer BC ==
--- NOTE | 2024-08-10 15:03 | US ---
EXAMINATION TYPE: US transvaginal DATE OF EXAM: 08/10/2024 COMPARISON: 07/22/2023 CLINICAL INDICATION: Female, 59 years old with history of N83.291 OVARIAN CYST RT SIDE, N83.292 OVAR HODA CYST LT SIDE; ablation 2014 2 c sections hx of ovarian cysts TECHNIQUE: Transvaginal (TV Date of LMP: 2014 EXAM MEASUREMENTS: Uterus: 5.7 x 2.7 x 4.0 cm Endometrial Stripe: .3 cm Right Ovary: 2.6 x 2.7 x 3.6 cm Left Ovary: 1.4 x 1.5 x 1.3 cm 1. Uterus: Anteverted Nabothian cysts seen 2. Endometrium: wnl 3. Right Ovary: cystic area 2.2 x 2.4 x 3.1 cm 4. Left Ovary: cystic area 1.6 cm. 5. Bilateral Adnexa: wnl 6. Posterior cul-de-sac: wnl IMPRESSION: 1. Right cystic renal lesion measuring 3.1 cm versus 4.0 cm on prior exam. 2. Left renal cystic lesion measuring 1.6 cm versus 1.6 cm on prior exam. 3. There is incomplete resolution of the cystic lesions of the bilateral ovaries. Recommend correlati on with CA-125.
--- NOTE | 2024-08-11 17:12 | MM ---
Reason for Exam: Screening (asymptomatic). Last mammogram was performed 1 year(s) and 2 month(s) ago. Patient History: Menarche at age 11. First Full-Term at age 29. Postmenopausal. Maternal grandmother had breast cancer, age 45. Mother had breast cancer, age 70. Risk Values: Miri 5 year model risk: 2.9%. NCI Lifetime model risk: 15.9%. Prior Study Comparison: 02/01/2021 Bilateral Screening Mammogram, [facility]. 02/19/2022 Bilateral Screening Mammogram, [facility]. 06/10/2023 Bilateral MG 3D screening mammo w/cad, [facility]. Tissue Density: The breasts are heterogeneously dense, which may obscure small masses. Findings: Analyzed By CAD. Unchanged focal asymmetry left upper outer quadrant middle depth. There is no suspicious group of microcalcifications or new suspicious mass in either breast. Overall Assessment: Benign, BI-RAD 2 Management: Screening Mammogram of both breasts in 1 year. . Patient should continue monthly self-breast exams. A clinical breast exam by your physician is recommended on an annual basis. This exam should not preclude additional follow-up of suspicious palpable abnormalities. Note on Miri scores and lifetime risk: 1. A Miri score greater than 3% is considered moderate risk. If this is the case, consider specialist referral to assess eligibility for a risk reducing agent. 2. If overall lifetime risk for the development of breast cancer is 20% or higher, the patient may qualify for future screening with alternating mammogram and breast MRI. Electronically signed and approved by: Chun Mayen M.D. Radiologist
== END | disposition home or self-care (01) ==
LOC: RADMAMWWP 06:54
PROVIDERS: ATTEND Family Medicine
DX: Z12.31 Encounter for screening mammogram for malignant neoplasm of breast (principal); R92.333 Mammographic heterogeneous density, bilateral breasts; Z78.0 Asymptomatic menopausal state; Z80.3 Family history of malignant neoplasm of breast; N83.291 Other ovarian cyst, right side; N83.292 Other ovarian cyst, left side
CPT/HCPCS: 76830; 77063; 77067

== ENCOUNTER → 2025-03-23 | Outpatient (CLI) | payer BC ==
--- NOTE | 2025-03-24 09:45 | MR ---
EXAMINATION TYPE: MR lumbar spine wo con DATE OF EXAM: 03/23/2025 8:32 PM COMPARISON: None. CLINICAL INDICATION: Female, 59 years old with history of M54.41, M25.551; PHH, low back pain for 2-3 years that radiates down right leg. TECHNIQUE: Multi planar, multi sequence imaging was performed utilizing: T1-weighted, T2-weighted, a nd turbo inversion recovery imaging of the lumbar spine. IV Contrast: mL (None, if empty) FINDINGS: Alignment: The lumbar vertebral bodies have preserved heights with grade 1 anterolisthesis of L3 on L 4 and L4 on L5. Cord: The conus medullaris and the distal spinal cord appear unremarkable with regards to their signa l intensity and morphology. Bones/Discs: Multilevel disc degeneration changes with osteophyte formation, disc space narrowing and facet joint arthropathy. Intervertebral disc signal is maintained. Reactive adjoining endplate kailyn a at L3-L4 and L4-L5 T12-L1: No evidence of significant spinal canal stenosis or neural foraminal stenosis. L1-L2: No evidence of significant spinal canal stenosis or neural foraminal stenosis. L2-L3: No evidence of significant spinal canal stenosis or neural foraminal stenosis. L3-L4: Disc uncovering from grade 1 anterolisthesis and facet joint arthropathy with moderate to shamir re spinal canal stenosis and severe left and moderate right neural foraminal stenosis. L4-L5: Disc uncovering from grade 1 anterolisthesis and facet joint arthropathy with severe spinal ca nal stenosis and severe right and moderate severe left neural foraminal stenosis. L5-S1: The disc has a rounded posterior morphology without significant spinal canal stenosis. Facet j oint arthropathy with moderate bilateral neural foraminal stenosis. No significant spinal canal or neural foraminal stenosis in the remainder of the visualized levels. Other findings: None. IMPRESSION: 1. No definitive evidence of disc herniation. 2. Multilevel disc degeneration with associated osteoarthritic changes. 3. Grade 1 anterolisthesis of L3 on L4 and L4 on L5 this results in L4-L5 severe spinal canal stenos is and L3-L4 moderate to severe spinal canal stenosis. Additionally severe right L4-L5 and severe lef t L3-L4 neural foraminal stenosis. [facility], , 03/24/2025 9:43 AM
--- NOTE | 2025-03-24 10:09 | MR ---
EXAMINATION TYPE: MR hip RT wo con DATE OF EXAM: 03/23/2025 8:39 PM COMPARISON: None. CLINICAL INDICATION: Female, 59 years old with history of M54.41, M25.551, Right hip pain and clickin g for 6 months TECHNIQUE: Multiplanar multi-sequential magnetic resonance imaging of the hip without contrast. IV Contrast: mL FINDINGS: Joint spaces and alignment: Normal Joint/bursal fluid: Normal Articular cartilage: Mild thinning of the cartilage bilaterally most pronounced in the superior aspec t of the acetabulum and femur. Acetabular labrum: Intact, no displaced tear visualized. Muscles/Tendons: Mild edema within the obturator externus muscle near its insertion onto the femur. S eries 601 image 14. The tendons of the gluteal, hamstring, iliopsoas, and adductors are normal in wit hin normal limits without evidence for edema and are intact. Abductor tendon insertions: Intact Intrapelvic structures: Normal Neurovascular structures: Normal Osseous structures: There is close proximity to the femur lesser trochanter and the initial tuberosit y and mild edema within the obturator externus with distance measuring 9 mm. The femoral head demonst rates normal morphology and signal characteristics. There is no evidence of fracture or acute proces s. The sacroiliac joints and pubic symphysis are noted to be unremarkable. Soft tissues: Normal Other: The the uterus is unremarkable with endometrium within normal limits. Bilateral cystic changes to the ovaries the largest in the right measuring up to 27 mm and on the left measuring 14 mm and ar e high T2 low T1 signal. The urinary bladder is unremarkable. No lymphadenopathy is visualized. Scat tered colonic diverticula. IMPRESSION: 1. No evidence for a hip fracture, AVN, or bone marrow edema. 2. Mild edema within the right obturator externus muscle near its insertion onto the femur. Correlat e for muscle strain. 3. Mild osteoarthritic changes of the right hip. 4. Mild degeneration changes of the labrum no displaced labral tear visualized within the limits of non-arthrogram technique. 5. Ischiofemoral impingement suggested on the left with mild edema in the upper extremities muscle. 6. Colonic diverticulosis. 7. Bilateral ovarian cysts measuring 26 mm in the right. Consider ultrasound surveillance imaging [facility], , 03/24/2025 10:07 AM
== END | disposition home or self-care (01) ==
LOC: RADMRIMAIN 19:45
PROVIDERS: ATTEND Family Medicine
DX: M51.360 Other intervertebral disc degeneration, lumbar region with discogenic back pain only (principal); M47.816 Spondylosis without myelopathy or radiculopathy, lumbar region; M54.41 Lumbago with sciatica, right side; M43.16 Spondylolisthesis, lumbar region; M48.061 Spinal stenosis, lumbar region without neurogenic claudication; M24.111 Other articular cartilage disorders, right shoulder; M16.11 Unilateral primary osteoarthritis, right hip; K57.30 Diverticulosis of large intestine without perforation or abscess without bleeding; N83.201 Unspecified ovarian cyst, right side; N83.202 Unspecified ovarian cyst, left side; R60.0 Localized edema
CPT/HCPCS: 72148